=== PATIENT | female | born 1990 | race Caucasian/White ===

== ENCOUNTER 2018-10-08 12:42 | Emergency (ER) | payer MEDICAID ==
[~2018-10-08] VITALS: Ht 175.3 cm; Wt 61.0 kg
[~2018-10-08 12:42] MED LIST: ACET-2119 PO; DIPH25CA83 PO; GUAI120015 PO; NO HOME MEDS; PRED10TA PO; PSEU-259 PO
[2018-10-08] MEDS ORDERED: PENI500T2 PO (13:34)
[2018-10-08] MEDS ORDERED: IBUP-1984 PO (13:41)
[2018-10-08 13:57] VITALS: BP 112/78
== END 2018-10-08 13:59 | disposition home or self-care (01) ==
LOC: ER 12:42
DX: K04.7 Periapical abscess without sinus (principal); Z59.0 Homelessness; Z79.899 Other long term (current) drug therapy
CPT/HCPCS: 99283

== ENCOUNTER 2021-04-18 08:49 | Emergency (ER) | payer MEDICAID ==
[~2021-04-18] VITALS: Ht 177.8 cm; Wt 59.1 kg
[2021-04-18 09:01] VITALS: BP 119/72
[2021-04-18] MEDS ORDERED: LIDOcaine 1% W/epiNEPHrine 1:200,000 10ml vial IJ ONE (13:05)
[2021-04-18] MEDS ORDERED: HYDROcodone/acetaminophen 10/325mg tab PO ONE (13:05)
== END 2021-04-18 19:43 | disposition left against medical advice (07) ==
LOC: ER 08:49
DX: L02.411 Cutaneous abscess of right axilla (principal); Z59.00 Homelessness unspecified; Z79.899 Other long term (current) drug therapy
CPT/HCPCS: 99281

== ENCOUNTER 2021-05-20 02:29 | Emergency (ER) | payer MEDICAID ==
[~2021-05-20] VITALS: Ht 175.3 cm; Wt 63.6 kg
[2021-05-20 03:08] VITALS: BP 109/80
[2021-05-20] MEDS ORDERED: CEPH-585 PO (04:14)
[2021-05-20] MEDS ORDERED: SULF1TAB49 PO (04:14)
[2021-05-20] MEDS ORDERED: sulfamethoxazole/trimethoprim DS (800/160mg) tablet PO ONE (04:15)
[2021-05-20] MEDS ORDERED: cephalexin 250mg capsule PO ONE (04:15)
[2021-05-20] MEDS ORDERED: LIDOcaine 1% W/epiNEPHrine 1:200,000 10ml vial ONE (08:00)
== END 2021-05-20 04:54 | disposition home or self-care (01) ==
LOC: ER 02:30
DX: L02.411 Cutaneous abscess of right axilla (principal); R07.89 Other chest pain; R06.02 Shortness of breath; Z59.00 Homelessness unspecified; Z79.2 Long term (current) use of antibiotics; Z79.899 Other long term (current) drug therapy
CPT/HCPCS: 10060; 99283; J3490